=== PATIENT | male | born 1995 | race Caucasian/White ===

== ENCOUNTER 2022-05-13 20:01 | Emergency (ER) | payer BC, OTHER ==
[2022-05-13 20:19] VITALS: TEMP 98.2
[2022-05-13 20:49] LABS: Basophils # (A) 0.1 k/uL (0-0.2); Basophils % (A) 1 %; Eosinophils % (A) 0 %; HCT 45.5 % (39.0-53.0); HGB 14.9 gm/dL (13.0-17.5); Lymphocytes # (A) 1.7 k/uL (1.0-4.8); Lymphocytes % (A) 18 %; MCH 28.8 pg (25.0-35.0); MCHC 32.7 g/dL (31.0-37.0); MCV 88.2 fL (80.0-100.0); Mean Platelet Volume 7.1; Monocytes # (A) 0.7 k/uL (0-1.0); Monocytes % (A) 7 %; Neutrophils % (A) 73 %; Platelet Count 236 k/uL (150-450); RBC 5.16 m/uL (4.30-5.90); RDW 12.3 % (11.5-15.5); WBC 9.6 k/uL (3.8-10.6)
[2022-05-13 20:53] LABS: ALT 59 U/L (4-49); AST 102 U/L (17-59); African American GFR (CKD) 87 (>60 ml/min/1.73 sqM); Albumin 5.5 g/dL (3.5-5.0); Alcohol <10 mg/dL; Alkaline Phosphatase 60 U/L (38-126); Anion Gap 16 mmol/L; Blood Urea Nitrogen 13 mg/dL (9-20); Carbon Dioxide 24 mmol/L (22-30); Chloride 100 mmol/L (98-107); Glucose 68 mg/dL (74-99); Non-African American GFR(CKD) 76 (>60 ml/min/1.73 sqM); Sodium 140 mmol/L (137-145); Total Bilirubin 1.1 mg/dL (0.2-1.3); Total Protein 8.4 g/dL (6.3-8.2)
--- NOTE | 2022-05-13 20:55 | XR ---
EXAMINATION TYPE: XR chest 1V portable DATE OF EXAM: 05/13/2022 COMPARISON: NONE HISTORY: Pain TECHNIQUE: Single view FINDINGS: Heart and mediastinum are normal. Lungs are clear. Diaphragm is normal. Bony thorax is inta ct. No pleural effusion or pneumothorax. IMPRESSION: Normal chest.
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
[2022-05-13 21:05] VITALS: BP 138/60; PULSE 71; RESP 15
[2022-05-13 21:20] LABS: INR 1.1 (<1.2); Partial Thromboplastin Time 24.7 sec (22.0-30.0); Prothrombin Time 11.3 sec (9.0-12.0)
--- NOTE | 2022-05-13 21:43 | XR ---
EXAMINATION TYPE: XR shoulder complete LT DATE OF EXAM: 05/13/2022 COMPARISON: NONE HISTORY: Shoulder pain TECHNIQUE: 3 views FINDINGS: The glenohumeral joint is intact. I see no fracture nor dislocation. Joint spaces are fairl y normal. IMPRESSION: Negative left shoulder exam.
--- NOTE | 2022-05-13 21:48 | XR ---
EXAMINATION TYPE: XR scapula LT DATE OF EXAM: 05/13/2022 COMPARISON: NONE HISTORY: Shoulder pain TECHNIQUE: 2 views FINDINGS: I see no fracture nor dislocation. Joint spaces are normal. No pathologic calcifications. IMPRESSION: Negative left scapula exam. No fracture.
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
== END 2022-05-13 23:44 | disposition home or self-care (01) ==
LOC: EC 20:01
DX: S43.492A Other sprain of left shoulder joint, initial encounter (principal); Z88.0 Allergy status to penicillin; V86.96XA Unspecified occupant of dirt bike or motor/cross bike injured in nontraffic accident, initial encounter
CPT/HCPCS: 36415; 71045; 80053; 80320; 83605; 84484; 85025; 85610; 85730; 93005; 99284